=== PATIENT | female | born 1990 | race Caucasian/White ===

== ENCOUNTER 2017-10-22 09:08 | Emergency (ER) | payer OTHER ==
[~2017-10-22] VITALS: Ht 154.9 cm; Wt 55.0 kg
[2017-10-22 09:11] VITALS: BP 128/86; PULSE 103; RESP 18; TEMP 98.3; O2SAT 99
[2017-10-22] MEDS ORDERED: PROZ20CA11 PO (09:20)
[2017-10-22] MEDS ORDERED: SPIR50TA PO (09:20)
[2017-10-22] MEDS ORDERED: ONDANSETRON HCL 4 MG/2 ML VIAL IV PUSH ONE (09:30)
[2017-10-22] MEDS ORDERED: SODIUM CHLOR 0.9% 1000 ML INJ 1,000 ML IV ONE (09:30)
[2017-10-22 09:39] LABS: AUTOMATED NEUTROPHIL # 5.8 TH/MM3 (1.8-7.7); BASOPHIL % 0.2 % (0.0-2.0); EOSINOPHIL % 0.6 % (0.0-4.0); HEMATOCRIT 45.8 % (35.0-46.0); HEMOGLOBIN 14.9 GM/DL (11.6-15.3); LYMPH % 18.5 % (9.0-44.0); LYMPHOCYTE # 1.4 TH/MM3 (1.0-4.8); MEAN CELL VOLUME 88.4 FL (80.0-100.0); MEAN CORPUSCULAR HEMOGLOBIN 28.9 PG (27.0-34.0); MEAN CORPUSCULAR HGB CONC 32.6 % (32.0-36.0); MEAN PLATELET VOLUME 7.2 FL (7.0-11.0); MONO % 5.9 % (0.0-8.0); MONOCYTE # 0.4 TH/MM3 (0-0.9); NEUT % 74.8 % (16.0-70.0); PLATELET COUNT 390 TH/MM3 (150-450); RED BLOOD COUNT 5.18 MIL/MM3 (4.00-5.30); RED CELL DISTRIBUTION WIDTH 12.4 % (11.6-17.2); WHITE BLOOD COUNT 7.6 TH/MM3 (4.0-11.0)
[2017-10-22] MEDS ORDERED: ACETAMINOPHEN 325 MG TAB PO ONE (09:45)
--- NOTE | 2017-10-22 10:01 | RADRPT ---
EXAM DATE/TIME: 10/22/2017 09:39 [place] COMPARISON: No previous studies available for comparison. INDICATIONS : Chest tightness, nausea, vomiting. MEDICAL HISTORY : None. SURGICAL HISTORY : None. ENCOUNTER: Initial ACUITY: 3 days PAIN SCORE: 2/10 LOCATION: Bilateral chest FINDINGS: PA and lateral views of the chest demonstrate the lungs to be symmetrically aerated without evidence of mass, infiltrate or effusion. The cardiomediastinal contours are unremarkable. Osseous structure s are intact. CONCLUSION: No acute disease. Daljit Lawson MD on October 22, 2017 at 9:49 Board Certified Radiologist. This report was verified electronically.
--- NOTE | 2017-10-22 10:02 | PD ---
HPI Chief Complaint: GI Complaint Time Seen by Provider: 09:17 Travel History International Travel<30 days: No Contact w/Intl Traveler<30days: No Traveled to known affect area: No History of Present Illness HPI 27-year-old female presents with vomiting, diarrhea, shortness of breath, body aches over the past couple days since she stopped using heroin 4 days ago. She states she's never IV injected and she always snorted. She presents by ambulance. She denies possibility of . She denies any other concurrent complaints. Quality is nonbloody. Severity is multiple episodes. PFSH Past Medical History Depression: Yes Diminished Hearing: No Reproductive: Yes (hormonal regulation) Influenza Vaccination: Yes ?: Not LMP: 10/2017 Past Surgical History Other Surgery: Yes (rhinoplasty) Social History Alcohol Use: No Tobacco Use: Yes Substance Use: Yes (heroin) Allergies-Medications (Allergen,Severity, Reaction): Coded Allergies: No Known Allergies (Verified Allergy, Unknown, 10/22/17) Reported Meds & Prescriptions Reported Meds & Active Scripts Active Zofran Odt (Ondansetron Odt) 4 Mg Tab 4 Mg SL Q6HR PRN Reported Spironolactone 50 Mg Tab 50 Mg PO DAILY Prozac (Fluoxetine HCl) 20 Mg Cap 20 Mg PO DAILY Review of Systems Except as stated in HPI: all other systems reviewed are Neg Physical Exam Narrative GENERAL: Well-nourished, well-developed patient. Well-appearing SKIN: Warm and dry. HEAD: Normocephalic and atraumatic. EYES: No injection or drainage. ENT: No nasal drainage noted. NECK: Supple, trachea midline. CARDIOVASCULAR: Regular rate and rhythm RESPIRATORY: Breath sounds equal bilaterally. No accessory muscle use. GASTROINTESTINAL: Abdomen soft, non-tender, nondistended. EXTREMITIES: No edema. BACK: Nontender without obvious deformity. NEUROLOGICAL: Awake and alert. Motor and sensory grossly within normal limits. Normal speech. Data Data Last Documented VS Vital Signs Date Time Temp Pulse Resp B/P (MAP) Pulse Ox O2 Delivery O2 Flow Rate FiO2 10/22/17 10:57 18 10/22/17 10:55 84 121/79 (93) 99 Room Air 10/22/17 09:11 98.3 Orders Orders Magnesium (Mg) (10/22/17 09:22) Phosphorus (Po4) (10/22/17 09:22) Complete Blood Count With Diff (10/22/17 09:22) Comprehensive Metabolic Panel (10/22/17 09:22) Electrocardiogram (10/22/17 ) Iv Access Insert/Monitor (10/22/17 09:22) Ecg Monitoring (10/22/17 09:22) Oximetry (10/22/17 09:22) Drug Screen, Random Urine (10/22/17 09:22) Ondansetron Inj (Zofran Inj) (10/22/17 09:30) Sodium Chlor 0.9% 1000 Ml Inj (Ns 1000 M (10/22/17 09:30) Chest, Pa & Lat (10/22/17 ) Acetaminophen (Tylenol) (10/22/17 09:45) Oral Rehydration (10/22/17 11:19) Ed Discharge Order (10/22/17 11:47) Labs Laboratory Tests Test 10/22/17 09:15 10/22/17 10:45 White Blood Count 7.6 TH/MM3 Red Blood Count 5.18 MIL/MM3 Hemoglobin 14.9 GM/DL Hematocrit 45.8 % Mean Corpuscular Volume 88.4 FL Mean Corpuscular Hemoglobin 28.9 PG Mean Corpuscular Hemoglobin Concent 32.6 % Red Cell Distribution Width 12.4 % Platelet Count 390 TH/MM3 Mean Platelet Volume 7.2 FL Neutrophils (%) (Auto) 74.8 % Lymphocytes (%) (Auto) 18.5 % Monocytes (%) (Auto) 5.9 % Eosinophils (%) (Auto) 0.6 % Basophils (%) (Auto) 0.2 % Neutrophils # (Auto) 5.8 TH/MM3 Lymphocytes # (Auto) 1.4 TH/MM3 Monocytes # (Auto) 0.4 TH/MM3 Eosinophils # (Auto) 0.0 TH/MM3 Basophils # (Auto) 0.0 TH/MM3 CBC Comment DIFF FINAL Differential Comment Blood Urea Nitrogen 11 MG/DL Creatinine 0.87 MG/DL Random Glucose 118 MG/DL Total Protein 7.8 GM/DL Albumin 3.5 GM/DL Calcium Level 9.2 MG/DL Phosphorus Level 2.4 MG/DL Magnesium Level 2.1 MG/DL Alkaline Phosphatase 72 U/L Aspartate Amino Transf (AST/SGOT) 21 U/L Alanine Aminotransferase (ALT/SGPT) 30 U/L Total Bilirubin 0.2 MG/DL Sodium Level 136 MEQ/L Potassium Level 3.8 MEQ/L Chloride Level 104 MEQ/L Carbon Dioxide Level 22.5 MEQ/L Anion Gap 10 MEQ/L Estimat Glomerular Filtration Rate 79 ML/MIN Urine Opiates Screen NEG Urine Barbiturates Screen NEG Urine Amphetamines Screen NEG Urine Benzodiazepines Screen NEG Urine Cocaine Screen NEG Urine Cannabinoids Screen POS MDM Medical Decision Making Medical Screen Exam Complete: Yes Emergency Medical Condition: Yes Medical Record Reviewed: Yes (past history confirmed) Interpretation(s) EKG is sinus tachycardia without STEMI criteria CBC & BMP Diagram 10/22/17 09:15 Total Protein 7.8, Albumin 3.5, Calcium Level 9.2, Phosphorus Level 2.4 L, Magnesium Level 2.1, Alkaline Phosphatase 72, Aspartate Amino Transf (AST/SGOT) 21, Alanine Aminotransferase (ALT/SGPT) 30, Total Bilirubin 0.2 Last 24 hours Impressions Chest X-Ray 10/22/17 0000 Signed Impressions: Service Date/Time: Sunday, October 22, 2017 09:39 - CONCLUSION: No acute disease. Daljit Lawson MD Differential Diagnosis Electrolyte abnormality, renal failure, opioid withdrawal Narrative Course Will check blood work and dose with Zofran and IV fluids and reevaluate Labs without emergent findings, no emesis here, tolerated oral hydration, advised to seek outpatient drug rehabilitation,Patient denies any new complaints and states that they are feeling better. Patient happy with care, all questions answered. Patient knows that follow up is incumbent on them and to return to the emergency room immediately if new or worsening symptoms develop. Patient given strict return precautions, vitals reviewed and are normal , agrees to further workup as an outpatient. Diagnosis Primary Impression: Opiate withdrawal Additional Impression: Vomiting and diarrhea Patient Instructions: General Instructions Additional Instructions: return as needed, follow with primary wednesday, keep hydrated, continue to avoid illicit drug use Med/Other Pt SpecificInfo: Prescription(s) given Scripts Ondansetron Odt (Zofran Odt) 4 Mg Tab 4 MG SL Q6HR Y for Nausea/Vomiting, #15 TAB 0 Refills Prov: Aurelia Wade MD 10/22/17 Disposition: 01 DISCHARGE HOME Condition: Stable Aurelia Wade MD Oct 22, 2017 10:02
[2017-10-22 10:15] LABS: CALCIUM 9.2 MG/DL (8.5-10.1); GLUCOSE,RANDOM 118 MG/DL (74-106)
[2017-10-22 10:16] LABS: BICARBONATE 22.5 MEQ/L (21.0-32.0); BLOOD UREA NITROGEN 11 MG/DL (7-18); MAGNESIUM 2.1 MG/DL (1.5-2.5)
[2017-10-22 10:17] LABS: ALBUMIN 3.5 GM/DL (3.4-5.0); CHLORIDE 104 MEQ/L (98-107); SODIUM (NA) 136 MEQ/L (136-145)
[2017-10-22 10:19] LABS: ALT (GPT) 30 U/L (10-53); CREATININE 0.87 MG/DL (0.50-1.00); GLOMERULAR FILTRATION RATE 79 ML/MIN (>89)
[2017-10-22 10:20] LABS: AST (GOT) 21 U/L (15-37); PHOSPHORUS 2.4 MG/DL (2.5-4.9)
[2017-10-22 10:21] LABS: TOTAL PROTEIN 7.8 GM/DL (6.4-8.2)
[2017-10-22 10:22] LABS: ALKALINE PHOSPHATASE 72 U/L (45-117)
[2017-10-22 10:30] LABS: TOTAL BILIRUBIN ADULT 0.2 MG/DL (0.2-1.0)
[2017-10-22 10:55] VITALS: BP 121/79; PULSE 84; RESP 18; O2SAT 99
[2017-10-22 10:57] VITALS: RESP 18
--- NOTE | 2017-10-22 11:13 | EKG ---
Date Performed: 10/22/2017 Time Performed: 09:09:13 PTAGE: 27 years EKG: SINUS TACHYCARDIA NONSPECIFIC T-WAVE ABNORMALITY ABNORMAL ECG NO PREVIOUS TRACING DOCTOR: Clive Day Interpretating Date/Time 10/22/2017 11:11:37
[2017-10-22] MEDS ORDERED: ZOFR4TAB3 SL (11:38)
== END 2017-10-22 11:59 | disposition home or self-care (01) ==
LOC: PHED 09:08
DX: F11.23 Opioid dependence with withdrawal (principal); R11.10 Vomiting, unspecified; R19.7 Diarrhea, unspecified; R06.02 Shortness of breath; R94.31 Abnormal electrocardiogram [ECG] [EKG]; Z72.0 Tobacco use
CPT/HCPCS: 71046; 80053; 80307; 83735; 84100; 85025; 93005; 96361; 96374; 99285; J2405; J7030